=== PATIENT | female | born 1975 | race Caucasian/White ===

== ENCOUNTER 2023-03-07 17:16 | Emergency (ER) | payer MEDICAID ==
[~2023-03-07] VITALS: Ht 160 cm; Wt 86.2 kg
[2023-03-07 17:48] VITALS: BP_SYST 124
[2023-03-07 18:46] LABS: BILIRUBIN,URINE NEGATIVE (NEGATIVE); BLOOD, URINE NEGATIVE (NEGATIVE); CLARITY/URINE CLEAR (CLEAR); COLOR,URINE YELLOW (YELLOW); GLUCOSE,URINE NEGATIVE (NEGATIVE); KETONES,URINE NEGATIVE (NEGATIVE); LEUKOCYTE ESTERASE ,URINE NEGATIVE (NEGATIVE); NITRITE, URINE NEGATIVE (NEGATIVE); PROTEIN URINE NEGATIVE (NEGATIVE); UROBILINOGEN,URINE 0.2 (0.2-1.0)
[2023-03-07] MEDS ORDERED: NACL 0.9% 1,000 ML IV ONE (21:30)
[2023-03-07] MEDS ORDERED: MORPHINE 4 MG INJ. 4 MG/ML VIAL IM ONE (21:45)
[2023-03-07 21:55] LABS: BASOPHILS # (AUTO) 0.1 K/uL (0.0-0.2); BASOPHILS % (AUTO) 0.7 % (0.0-2.0); EOSINOPHILS # (AUTO) 0.1 K/uL (0.0-0.4); EOSINOPHILS % (AUTO) 0.6 % (0.0-4.0); HEMATOCRIT 42.6 % (36-48); HEMOGLOBIN 13.9 g/dL (12.0-16.0); LYMPHOCYTES # (AUTO) 4.3 K/uL (1.0-5.5); LYMPHOCYTES % (AUTO) 31.5 % (20.5-51.5); MEAN CORPUSCULAR HEMOGLOBIN 29 pg (27-31); MEAN CORPUSCULAR HGB CONC 33 % (32-36); MEAN CORPUSCULAR VOLUME 90 fL (79.0-98.0); MONOCYTES % (AUTO) 7.2 % (1.7-9.3); NEUTROPHILS # (AUTO) 8.1 K/uL (1.8-7.7); PLATELET COUNT (AUTO) 334 K/uL (130-430); RED BLOOD CELL COUNT(AUTO) 4.75 MIL/uL (4.2-6.2); RED CELL DISTRIBUTION WIDTH 15.3 % (9.0-15.0); WHITE BLOOD COUNT (AUTO) 13.5 K/uL (4.8-10.8)
[2023-03-07 22:06] LABS: CALCIUM 9.1 mg/dL (8.4-11.0); CREATININE 0.73 mg/dL (0.55-1.30)
[2023-03-07 22:10] LABS: ALBUMIN 3.9 g/dL (3.4-4.8); TOTAL BILIRUBIN 0.3 mg/dL (0.0-1.0)
[2023-03-07] MEDS ORDERED: ONDA-8 TL (23:33)
[2023-03-07] MEDS ORDERED: HYDR-3927 PO ×2 (23:33→23:35)
[2023-03-08 01:05] VITALS: BP_SYST 135
== END 2023-03-07 23:44 | disposition home or self-care (01) ==
LOC: SED 17:16
DX: R10.30 Lower abdominal pain, unspecified (principal); M54.50 Low back pain, unspecified; G89.29 Other chronic pain; Z88.6 Allergy status to analgesic agent; Z79.899 Other long term (current) drug therapy
CPT/HCPCS: 99283; 80053; 83690; 85025; 36415; 81025; 96372; 81003; J2270

== ENCOUNTER 2023-03-17 14:04 | Emergency (ER) | payer MEDICAID ==
[~2023-03-17] VITALS: Ht 160 cm; Wt 86.2 kg
[~2023-03-17 14:04] MED LIST: ONDA-8 TL
[2023-03-17 14:18] VITALS: BP_SYST 113
[2023-03-17] MEDS ORDERED: KETOROLAC TROMETHAMINE 60 MG/2 ML VIAL IM ONE ×2 (14:30→16:15)
[2023-03-17] MEDS ORDERED: HYDROcodone/ACETAMIN 10-325 MG TAB PO ONE (14:30)
[2023-03-17 15:25] LABS: BASOPHILS % (AUTO) 0.5 % (0.0-2.0); EOSINOPHILS # (AUTO) 0.1 K/uL (0.0-0.4); EOSINOPHILS % (AUTO) 1.3 % (0.0-4.0); HEMATOCRIT 39.1 % (36-48); LYMPHOCYTES # (AUTO) 2.7 K/uL (1.0-5.5); LYMPHOCYTES % (AUTO) 31.1 % (20.5-51.5); MEAN CORPUSCULAR HEMOGLOBIN 30 pg (27-31); MEAN CORPUSCULAR HGB CONC 33 % (32-36); MEAN CORPUSCULAR VOLUME 90 fL (79.0-98.0); MONOCYTES # (AUTO) 0.6 K/uL (0.0-1.0); MONOCYTES % (AUTO) 7.3 % (1.7-9.3); NEUTROPHILS # (AUTO) 5.2 K/uL (1.8-7.7); NEUTROPHILS % (AUTO) 59.8 % (40.0-70.0); PLATELET COUNT (AUTO) 243 K/uL (130-430); RED BLOOD CELL COUNT(AUTO) 4.36 MIL/uL (4.2-6.2); RED CELL DISTRIBUTION WIDTH 15.4 % (9.0-15.0); WHITE BLOOD COUNT (AUTO) 8.8 K/uL (4.8-10.8)
[2023-03-17 15:51] LABS: BILIRUBIN,URINE NEGATIVE (NEGATIVE); BLOOD, URINE NEGATIVE (NEGATIVE); CLARITY/URINE CLEAR (CLEAR); COLOR,URINE YELLOW (YELLOW); GLUCOSE,URINE NEGATIVE (NEGATIVE); KETONES,URINE NEGATIVE (NEGATIVE); LEUKOCYTE ESTERASE ,URINE NEGATIVE (NEGATIVE); NITRITE, URINE NEGATIVE (NEGATIVE); PROTEIN URINE NEGATIVE (NEGATIVE); UROBILINOGEN,URINE 0.2 (0.2-1.0)
[2023-03-17 15:56] LABS: ALBUMIN 3.6 g/dL (3.4-4.8); CALCIUM 8.6 mg/dL (8.4-11.0); CREATININE 0.83 mg/dL (0.55-1.30); TOTAL BILIRUBIN 0.2 mg/dL (0.0-1.0)
[2023-03-17] MEDS ORDERED: TRAM50TA2 PO (16:14)
[2023-03-17] MEDS ORDERED: IMII6 SQ (16:59)
== END 2023-03-17 17:09 | disposition home or self-care (01) ==
LOC: SED 14:04
DX: M54.50 Low back pain, unspecified (principal); Z88.8 Allergy status to other drugs, medicaments and biological substances; Z79.899 Other long term (current) drug therapy
CPT/HCPCS: 99284; 80053; 85025; 36415; 72100; 81025; 96372; 81003; J1885

== ENCOUNTER 2023-05-04 14:30 | Emergency (ER) | payer MEDICAID ==
[~2023-05-04] VITALS: Ht 160 cm; Wt 90.7 kg
[~2023-05-04 14:30] MED LIST changes: +IMII6 SQ; +TRAM50TA2 PO
[2023-05-04 14:43] VITALS: BP_SYST 147; PULSE 105; RESP 18; TEMP 98.3; O2SAT 98
[2023-05-04] MEDS ORDERED: methocarbamoL 500 MG TABLET PO ONE (17:45)
[2023-05-04] MEDS ORDERED: LIDOCAINE PATCH 5% 1 EA TP ONE (17:45)
[2023-05-04] MEDS ORDERED: MORPHINE 4 MG INJ. 4 MG/ML VIAL IM ONE (17:45)
[2023-05-04 18:02] LABS: BASOPHILS # (AUTO) 0.1 K/uL (0.0-0.2); BASOPHILS % (AUTO) 0.6 % (0.0-2.0); EOSINOPHILS # (AUTO) 0.2 K/uL (0.0-0.4); EOSINOPHILS % (AUTO) 1.7 % (0.0-4.0); HEMATOCRIT 38.5 % (36-48); LYMPHOCYTES # (AUTO) 2.6 K/uL (1.0-5.5); LYMPHOCYTES % (AUTO) 26.9 % (20.5-51.5); MEAN CORPUSCULAR HEMOGLOBIN 30 pg (27-31); MEAN CORPUSCULAR HGB CONC 34 % (32-36); MEAN CORPUSCULAR VOLUME 88 fL (79.0-98.0); MONOCYTES # (AUTO) 0.9 K/uL (0.0-1.0); MONOCYTES % (AUTO) 9.3 % (1.7-9.3); NEUTROPHILS # (AUTO) 5.9 K/uL (1.8-7.7); NEUTROPHILS % (AUTO) 61.5 % (40.0-70.0); PLATELET COUNT (AUTO) 342 K/uL (130-430); RED BLOOD CELL COUNT(AUTO) 4.36 MIL/uL (4.2-6.2); RED CELL DISTRIBUTION WIDTH 15.5 % (9.0-15.0); WHITE BLOOD COUNT (AUTO) 9.5 K/uL (4.8-10.8)
[2023-05-04 18:07] LABS: ANION GAP 8 (5-15); CALCIUM 8.6 mg/dL (8.4-11.0); CHLORIDE 106 mmol/L (98-107); CREATININE 0.83 mg/dL (0.55-1.30); GFR AFRICAN AMERICAN 95 mL/min (>90); GLUCOSE 99 mg/dL (74-106); UREA NITROGEN, BLOOD 12 mg/dL (8-21)
[2023-05-04 18:15] LABS: ALANINE AMINOTRANSFERASE 20 U/L (12-78); ALBUMIN 3.5 g/dL (3.4-4.8); ASPARTATE AMINOTRANSFERASE 11 U/L (10-37); TOTAL BILIRUBIN 0.2 mg/dL (0.0-1.0)
[2023-05-04] MEDS ORDERED: HYDR-3917 PO ×2 (21:10)
[2023-05-04] MEDS ORDERED: MED4 PO (21:10)
[2023-05-04 21:15] VITALS: BP_SYST 115; PULSE 87; RESP 20; TEMP 97.9; O2SAT 99
[2023-05-04] MEDS ORDERED: OXYC-128 PO (21:17)
== END 2023-05-04 21:15 | disposition home or self-care (01) ==
LOC: SED 14:30
DX: G89.29 Other chronic pain (principal); M54.50 Low back pain, unspecified; R94.31 Abnormal electrocardiogram [ECG] [EKG]; R07.9 Chest pain, unspecified; Z88.6 Allergy status to analgesic agent; Z79.899 Other long term (current) drug therapy
CPT/HCPCS: 99284; 80053; 85025; 84484; 36415; 93005; 96372; J2270

== ENCOUNTER 2023-07-28 19:39 | Emergency (ER) | payer MEDICAID ==
[~2023-07-28] VITALS: Ht 160 cm; Wt 90.7 kg
[~2023-07-28 19:39] MED LIST changes: +MED4 PO; +OXYC-128 PO
[2023-07-28 20:14] VITALS: BP_SYST 129; PULSE 97; RESP 18; TEMP 99.3; O2SAT 98
[2023-07-28] MEDS ORDERED: MORPHINE 4 MG INJ. 4 MG/ML VIAL IM ONE (21:15)
[2023-07-28] MEDS ORDERED: HYDR-3917 PO (21:16)
[2023-07-28 21:47] VITALS: BP_SYST 145; PULSE 94; RESP 20; TEMP 97.7; O2SAT 98
== END 2023-07-28 21:45 | disposition home or self-care (01) ==
LOC: SED 19:39
DX: G89.29 Other chronic pain (principal); M25.561 Pain in right knee; Z88.6 Allergy status to analgesic agent; Z79.899 Other long term (current) drug therapy
CPT/HCPCS: 99283; 96372; J2270

== ENCOUNTER 2023-08-04 11:42 | Emergency (ER) | payer MEDICAID ==
[~2023-08-04] VITALS: Ht 160 cm; Wt 90.7 kg
[2023-08-04 11:42] VITALS: BP_SYST 111; PULSE 95; RESP 18; TEMP 97; O2SAT 95
[~2023-08-04 11:42] MED LIST changes: +HYDR-3917 PO
[2023-08-04] MEDS ORDERED: HYDROcodone/ACETAMIN 10-325 MG TAB PO ONE (12:15)
[2023-08-04] MEDS ORDERED: KETOROLAC TROMETHAMINE 60 MG/2 ML VIAL IM ONE (12:15)
[2023-08-04] MEDS ORDERED: HYDR-3917 PO (13:26)
[2023-08-04] MEDS ORDERED: PRED20TA PO (13:41)
[2023-08-04 14:04] VITALS: BP_SYST 111; PULSE 95; RESP 18; TEMP 97; O2SAT 95
[2023-08-04 14:06] LABS: BILIRUBIN,URINE NEGATIVE (NEGATIVE); BLOOD, URINE NEGATIVE (NEGATIVE); CLARITY/URINE CLEAR (CLEAR); COLOR,URINE YELLOW (YELLOW); GLUCOSE,URINE NEGATIVE (NEGATIVE); KETONES,URINE NEGATIVE (NEGATIVE); LEUKOCYTE ESTERASE ,URINE NEGATIVE (NEGATIVE); NITRITE, URINE NEGATIVE (NEGATIVE); PROTEIN URINE NEGATIVE (NEGATIVE); UROBILINOGEN,URINE 0.2 (0.2-1.0)
== END 2023-08-04 14:11 | disposition home or self-care (01) ==
LOC: SED 11:42
DX: G89.29 Other chronic pain (principal); M54.50 Low back pain, unspecified; Z79.899 Other long term (current) drug therapy
CPT/HCPCS: 72100-TC; 81003; 81025; 99284

== ENCOUNTER 2023-08-11 19:09 | Emergency (ER) | payer MEDICAID ==
[~2023-08-11] VITALS: Ht 160 cm; Wt 93.0 kg
[~2023-08-11 19:09] MED LIST changes: +PRED20TA PO
[2023-08-11 20:19] VITALS: BP_SYST 151; PULSE 93; RESP 16; TEMP 97; O2SAT 100
[2023-08-11] MEDS ORDERED: HYDR-3927 PO (20:23)
[2023-08-11 20:59] VITALS: BP_SYST 151; PULSE 93; RESP 16; TEMP 97; O2SAT 100
== END 2023-08-11 20:53 | disposition home or self-care (01) ==
LOC: SED 19:09
DX: G89.29 Other chronic pain (principal); M54.50 Low back pain, unspecified; Z88.6 Allergy status to analgesic agent; Z79.899 Other long term (current) drug therapy
CPT/HCPCS: 99283